=== PATIENT | male | born 1940 | race Caucasian/White ===

== ENCOUNTER 2019-04-26 23:49 | Inpatient (IN) | payer OTHER, MEDICARE ==
[~2019-04-26] VITALS: Ht 175.3 cm; Wt 49.0 kg
[2019-04-27] VITALS (14 sets, daily range): BP systolic 94–153; BP diastolic 52–87
[2019-04-27 02:38] LABS: microscopic required? NO
[2019-04-27 02:48] LABS: BASOPHIL % 0.3 % (0-2); RED CELL DISTRIBUTION WIDTH 14.9 % (11.5-14.5)
[2019-04-27 02:49] LABS: PLATELET COUNT 442 x10^3mcL (130-400)
[2019-04-27 02:55] LABS: urine erythrocyte NEGATIVE (NEGATIVE)
[2019-04-27 03:22] LABS: CALCIUM 9.2 mg/dL (8.5-10.1); CARBON DIOXIDE 39.7 mmol/L (21-32); CHLORIDE SERUM 97 mmol/L (98-107); GLUCOSE SERUM 112 mg/dL (74-106); POTASSIUM SERUM 4.7 mmol/L (3.5-5.1); SODIUM SERUM 138 mmol/L (136-145)
[2019-04-27 03:35] LABS: ALKALINE PHOSPHATASE 90 U/L (46-116); ALT/SGPT 44 U/L (16-63); AST/SGOT 30 U/L (15-37); BILIRUBIN TOTAL 0.2 mg/dL (0.20-1.00); HDL CHOLESTEROL 53 mg/dL (40-60); TOTAL PROTEIN, SERUM 6.9 g/dL (6.4-8.2)
[2019-04-27 03:36] LABS: ALBUMIN 2.1 g/dL (3.4-5.0); CHOLESTEROL 122 mg/dL (<200)
[2019-04-27] MEDS ORDERED: NATURE'S BLEND M3 MG PO (05:38)
[2019-04-27] MEDS ORDERED: ENVARSUS XR1 MG PO (05:38)
[2019-04-27] MEDS ORDERED: CELLCEPT250 MG GT (05:38)
[2019-04-27] MEDS ORDERED: NOVAPLUS E40 MG/0.4 (05:39)
[2019-04-27] MEDS ORDERED: PEPCID AC20 M2 GT (05:40)
[2019-04-27] MEDS ORDERED: BISOPROLOL FUMA1 TA4 GT (05:40)
[2019-04-27 05:53] LABS: CHOLESTEROL/HDL RATIO 2.4; MAGNESIUM 1.5 mg/dL (1.8-2.4); PHOSPHOROUS 4.2 mg/dL (2.5-4.9)
[2019-04-27 05:59] LABS: FREE T4 1.12 ng/dL (0.76-1.46); FREE THYROXINE INDEX 1.9 ug/dL (1.4-4.5); T4(THYROXINE) 5.6 ug/dL (4.7-13.3)
[2019-04-27 08:31] LABS: AMPHETAMINE QUAL UR NONE DETECTED (See below)
[2019-04-27 09:25] LABS: BASOPHIL % 0.2 % (0-2)
[2019-04-27 09:41] LABS: PLATELET COUNT 450 x10^3mcL (130-400); RED CELL DISTRIBUTION WIDTH 15.1 % (11.5-14.5)
[2019-04-27 09:50] LABS: CALCIUM 8.8 mg/dL (8.5-10.1); CHLORIDE SERUM 98 mmol/L (98-107); GLUCOSE SERUM 115 mg/dL (74-106); MAGNESIUM 1.3 mg/dL (1.8-2.4); PHOSPHOROUS 3.5 mg/dL (2.5-4.9); POTASSIUM SERUM 4.5 mmol/L (3.5-5.1); SODIUM SERUM 140 mmol/L (136-145)
[2019-04-27 09:50] LABS: T3 TOTAL 0.93 ng/mL
[2019-04-27] MEDS ORDERED: ENVARSUS XR1 MG (15:16)
[2019-04-28] VITALS (18 sets, daily range): BP systolic 101–136; BP diastolic 57–75
[2019-04-28 04:18] LABS: BASOPHIL % 0.1 % (0-2); PLATELET COUNT 384 x10^3mcL (130-400)
[2019-04-28 04:32] LABS: RED CELL DISTRIBUTION WIDTH 14.7 % (11.5-14.5)
[2019-04-28 04:52] LABS: rbc morphology (normal/abnorm) ABNORMAL (NORMAL)
[2019-04-28 04:54] LABS: CALCIUM 8.2 mg/dL (8.5-10.1); CARBON DIOXIDE 38.7 mmol/L (21-32); CHLORIDE SERUM 100 mmol/L (98-107); CREATININE SERUM 1.5 mg/dL (0.7-1.3); GLUCOSE SERUM 105 mg/dL (74-106); MAGNESIUM 1.8 mg/dL (1.8-2.4); PHOSPHOROUS 2.4 mg/dL (2.5-4.9); POTASSIUM SERUM 4.3 mmol/L (3.5-5.1); SODIUM SERUM 140 mmol/L (136-145)
[2019-04-29] VITALS (18 sets, daily range): BP systolic 111–153; BP diastolic 67–98
[2019-04-29 05:16] LABS: BASOPHIL % 0.2 % (0-2); PLATELET COUNT 388 x10^3mcL (130-400)
[2019-04-29 05:21] LABS: RED CELL DISTRIBUTION WIDTH 15.7 % (11.5-14.5)
[2019-04-29 07:39] LABS: CALCIUM 8.4 mg/dL (8.5-10.1); CARBON DIOXIDE 32.7 mmol/L (21-32); CHLORIDE SERUM 98 mmol/L (98-107); CREATININE SERUM 1.3 mg/dL (0.7-1.3); GLUCOSE SERUM 117 mg/dL (74-106); PHOSPHOROUS 3.4 mg/dL (2.5-4.9); POTASSIUM SERUM 4.3 mmol/L (3.5-5.1); SODIUM SERUM 137 mmol/L (136-145)
[2019-04-29 19:02] LABS: APPEARANCE FLUID CLOUDY; COLOR FLUID YELLOW; RBC FLUID 5050 /cumm; SOURCE FLUID THORACENTESIS; WBC FLUID 130 /cumm
[2019-04-29 19:03] LABS: LYMPHOCYTE FLUID 48 %; MONOCYTE FLUID 40 %
[2019-04-30] VITALS (13 sets, daily range): BP systolic 112–160; BP diastolic 72–98; Ht 175.3 cm; Wt 49.0 kg
[2019-04-30 05:33] LABS: BASOPHIL % 0.3 % (0-2); PLATELET COUNT 380 x10^3mcL (130-400)
[2019-04-30 05:49] LABS: RED CELL DISTRIBUTION WIDTH 15.7 % (11.5-14.5)
[2019-04-30 05:57] LABS: CALCIUM 8.6 mg/dL (8.5-10.1); CARBON DIOXIDE 35.2 mmol/L (21-32); CHLORIDE SERUM 97 mmol/L (98-107); CREATININE SERUM 1.3 mg/dL (0.7-1.3); GLUCOSE SERUM 118 mg/dL (74-106); MAGNESIUM 1.4 mg/dL (1.8-2.4); PHOSPHOROUS 3.3 mg/dL (2.5-4.9); POTASSIUM SERUM 3.4 mmol/L (3.5-5.1); SODIUM SERUM 137 mmol/L (136-145)
[2019-05-01 03:05] VITALS: BP 120/76
[2019-05-01 08:06] VITALS: BP 114/69
[2019-05-01 12:04] VITALS: BP 117/75
[2019-05-01 16:30] VITALS: BP 136/83
[2019-05-01 21:20] VITALS: BP 120/83
[2019-05-02 05:53] VITALS: BP 132/80
[2019-05-02 06:30] LABS: BASOPHIL % 0.1 % (0-2); PLATELET COUNT 361 x10^3mcL (130-400)
[2019-05-02 06:55] LABS: CALCIUM 9.1 mg/dL (8.5-10.1); CARBON DIOXIDE 39.1 mmol/L (21-32); CHLORIDE SERUM 96 mmol/L (98-107); CREATININE SERUM 1.4 mg/dL (0.7-1.3); GLUCOSE SERUM 102 mg/dL (74-106); MAGNESIUM 1.7 mg/dL (1.8-2.4); PHOSPHOROUS 4.3 mg/dL (2.5-4.9); POTASSIUM SERUM 3.6 mmol/L (3.5-5.1); SODIUM SERUM 136 mmol/L (136-145)
[2019-05-02 07:07] LABS: RED CELL DISTRIBUTION WIDTH 15.2 % (11.5-14.5)
[2019-05-02 08:48] VITALS: BP 106/63
[2019-05-02 12:13] VITALS: BP 109/61; BP 112/74
[2019-05-02] MEDS ORDERED: LEVAQUIN500 M1 PO (17:06)
[2019-05-02 17:26] VITALS: BP 109/61
[2019-05-02 17:44] VITALS: BP 112/72
== END 2019-05-02 19:28 | DRG 133 ==
LOC: ED 23:49 → DU 04-27 04:42 → IC 04-27 04:42 → DU 04-27 06:10 → IC 04-27 06:25 → DU 04-27 10:20 → IC 04-27 10:41 → DU 05-01 14:37
PROVIDERS: Emergency Medicine; Family Medicine; ADMIT Student in an Organized Health Care Education/Training Program
PROC: 5A1945Z Respiratory Ventilation, 24-96 Consecutive Hours (ICD-10-PCS; principal; 2019-04-27)
PROC: 0BH17EZ Insertion of Endotracheal Airway into Trachea, Via Natural or Artificial Opening (ICD-10-PCS; 2019-04-27)
PROC: 30233N1 Transfusion of Nonautologous Red Blood Cells into Peripheral Vein, Percutaneous Approach (ICD-10-PCS; 2019-04-29)
PROC: 0W994ZZ Drainage of Right Pleural Cavity, Percutaneous Endoscopic Approach (ICD-10-PCS; 2019-04-29)
DX: J96.21 Acute and chronic respiratory failure with hypoxia (principal); N17.0 Acute kidney failure with tubular necrosis; J69.0 Pneumonitis due to inhalation of food and vomit; E43 Unspecified severe protein-calorie malnutrition; I13.2 Hypertensive heart and chronic kidney disease with heart failure and with stage 5 chronic kidney disease, or end stage renal disease; D89.9 Disorder involving the immune mechanism, unspecified; E83.42 Hypomagnesemia; I69.351 Hemiplegia and hemiparesis following cerebral infarction affecting right dominant side; N18.6 End stage renal disease; J96.22 Acute and chronic respiratory failure with hypercapnia; J90 Pleural effusion, not elsewhere classified; E11.9 Type 2 diabetes mellitus without complications; Z94.1 Heart transplant status; I50.9 Heart failure, unspecified; E86.0 Dehydration; F03.90 Unspecified dementia, unspecified severity, without behavioral disturbance, psychotic disturbance, mood disturbance, and anxiety; R13.10 Dysphagia, unspecified; D64.9 Anemia, unspecified; D47.3 Essential (hemorrhagic) thrombocythemia; H26.8 Other specified cataract; Z93.1 Gastrostomy status; Z87.891 Personal history of nicotine dependence; Z79.899 Other long term (current) drug therapy; Z90.79 Acquired absence of other genital organ(s); Z91.15 Patient's noncompliance with renal dialysis; Z68.1 Body mass index [BMI] 19.9 or less, adult; Z91.19 Patient's noncompliance with other medical treatment and regimen
CPT/HCPCS: 32555; 36600; 82962; 83880; 84439; 87116; 87206; 87804; 88344; 92526-GN; 92610-GN; 97116-GP; 97530-GP; A4628; G0378; J0330; J1650; J1940; J2001; J2250; J2543; J3010; J3370; J3475; J3490; J7030; J7040; J7050; J7507; J7620; P9016; Q0092

== ENCOUNTER 2019-06-24 14:10 | Emergency (ER) | payer MEDICARE, OTHER, SELFPAY ==
[~2019-06-24] VITALS: Ht 172.7 cm; Wt 63.5 kg
[~2019-06-24 14:10] MED LIST: BISOPROLOL FUMA1 TA4 GT; CELLCEPT250 MG GT; ENVARSUS XR1 MG; ENVARSUS XR1 MG PO; LEVAQUIN500 M1 PO; NATURE'S BLEND M3 MG PO; NOVAPLUS E40 MG/0.4; PEPCID AC20 M2 GT
[2019-06-24 14:22] VITALS: Ht 172.7 cm; Wt 63.5 kg
[2019-06-24 15:36] LABS: BASOPHIL % 0.2 % (0-2); RED CELL DISTRIBUTION WIDTH 12.9 % (11.5-14.5)
[2019-06-24 15:37] LABS: PLATELET COUNT 457 x10^3mcL (130-400)
[2019-06-24 15:49] LABS: CALCIUM 9.5 mg/dL (8.5-10.1); CHLORIDE SERUM 92 mmol/L (98-107); CREATININE SERUM 1.5 mg/dL (0.7-1.3); GLUCOSE SERUM 113 mg/dL (74-106); SODIUM SERUM 131 mmol/L (136-145)
[2019-06-24 15:56] LABS: ALBUMIN 2.6 g/dL (3.4-5.0); ALKALINE PHOSPHATASE 71 U/L (46-116); ALT/SGPT 15 U/L (16-63); AST/SGOT 21 U/L (15-37)
[2019-06-24 16:31] LABS: UA SPECIFIC GRAVITY 1.015 (1.005-1.035); microscopic required? YES; urine erythrocyte NEGATIVE (NEGATIVE)
[2019-06-24 18:36] VITALS: BP 164/89
== END 2019-06-24 18:36 | disposition short-term general hospital (02) ==
LOC: ED 14:10
PROVIDERS: Emergency Medicine
DX: I62.00 Nontraumatic subdural hemorrhage, unspecified (principal); J18.9 Pneumonia, unspecified organism; E87.1 Hypo-osmolality and hyponatremia; I10 Essential (primary) hypertension; I50.9 Heart failure, unspecified; N18.9 Chronic kidney disease, unspecified; F03.90 Unspecified dementia, unspecified severity, without behavioral disturbance, psychotic disturbance, mood disturbance, and anxiety; Z86.73 Personal history of transient ischemic attack (TIA), and cerebral infarction without residual deficits
CPT/HCPCS: 83880; 87804; J0696; J7060; Q0092